=== PATIENT | male | born 1960 | race Caucasian/White ===

== ENCOUNTER → 2023-07-14 | Outpatient (CLI) | payer MEDICARE, BC, SELFPAY ==
[2023-07-14 15:05] LABS: Erythrocyte Sedimentation Rate 10 mm/hr (0-20)
[2023-07-14 15:07] LABS: Vitamin B12 581 pg/mL (211-911)
[2023-07-14 15:48] LABS: ALB/GLOB Ratio 1.1 RATIO (0.9-2.4); AST(SGOT) 11 U/L (15-37); Alanine Aminotransfer ALT/SGPT 33 U/L (16-61); Albumin, Serum 3.8 g/dL (3.2-5.0); Alkaline Phosphatase 105 U/L (45-117); Amylase 75 U/L (25-115); Anion Gap 4 (5-15); BUN 17 mg/dL (7-18); BUN/Creat Ratio 13.1 RATIO (10-20); CRP < 2.90 mg/L (0.0-3.0); Calcium,Total 9.4 mg/dL (8.5-10.1); Chloride 107 mmol/L (98-107); EST Glomerular Filtration Rate 59 mL/min (>60); Est Glom Filt Rate - Afr Amer 72 mL/min (>60); Free T3 2.5 pg/mL (2.18-3.98); Globulin 3.5 g/dL (2.2-4.2); Glucose 89 mg/dL (74-106); Potassium 4.4 mmol/L (3.5-5.1); Protein, Total 7.3 g/dL (6.4-8.2); Sodium Level 138 mmol/L (136-145); T4 Free Direct 0.85 ng/dL (0.76-1.46); Thyroid Stim Hormone (TSH) 1.35 uIU/mL (0.358-3.74)
[2023-07-17 15:08] LABS: Anti-Centromere B Ab <0.2 AI (0.0-0.9); Anti-Chromatin <0.2 AI (0.0-0.9); Anti-Jo <0.2 AI (0.0-0.9); Anti-Scleroderma-70 AB <0.2 AI (0.0-0.9); Anti-dsDNA Ab 1 IU/mL (0-9); RNP Ab <0.2 AI (0.0-0.9); SJOGREN'S Anti-SS-A test 0.2 AI (0.0-0.9); SJOGREN'S Anti-SS-B test < 0.2 AI (0.0-0.9); Smith Ab <0.2 AI (0.0-0.9); Vitamin D 1,25-Dihydroxy 36.4 pg/mL (24.8-81.5)
[2023-07-18 16:07] LABS: Albumin 4.3 g/dL (2.9-4.4); Alpha-1-Globulins 0.2 g/dL (0.0-0.4); Alpha-2-Globulins 0.6 g/dL (0.4-1.0); Cytoplasmic Ab (C-ANCA) <1:20 titer (Neg:<1:20); Endomysial Antibody IgA Negative (Negative); Immunoglobulin A 125 mg/dL (61-437); Immunoglobulin E 5 IU/mL (6-495); Immunoglobulin G 1095 mg/dL (603-1613); Immunoglobulin M 164 mg/dL (20-172); PROEL- TOTAL PROTEIN 6.9 g/dL (6.0-8.5); Perinuclear Ab (P-ANCA) <1:20 titer (Neg:<1:20); t-Transglutaminase IgA <2 U/mL (0-3)
== END | disposition home or self-care (01) ==
PROVIDERS: PCP Family Medicine; Referring Provider Internal Medicine Gastroenterology; Visit Provider Internal Medicine Gastroenterology
DX: R19.7 Diarrhea, unspecified (principal)
CPT/HCPCS: 36415; 80053; 82150; 82607; 82652; 82746; 82784; 82785; 83516; 84165; 84439; 84443; 84481; 85652; 86140; 86225; 86235; 86255; 86256; 86334

== ENCOUNTER → 2023-09-02 | Outpatient (CLI) | payer MEDICARE, BC, SELFPAY ==
[2023-09-08 10:09] LABS: Calprotectin, Stool 57 ug/g (0-120); Fats, Neutral Normal (.); Fats, Total Increased (.)
== END | disposition home or self-care (01) ==
LOC: LAB 13:40
PROVIDERS: PCP Family Medicine; Referring Provider Internal Medicine Gastroenterology; Visit Provider Internal Medicine Gastroenterology
DX: R19.7 Diarrhea, unspecified (principal); K58.9 Irritable bowel syndrome, unspecified
CPT/HCPCS: 82653; 82705; 83630; 83993; 86480; 87177; 87209; 87329; 87506

== ENCOUNTER → 2025-02-20 | Outpatient (CLI) | payer BC, MEDICARE, SELFPAY ==
--- NOTE | 2025-02-20 07:03 | ECHOCS_ITS ---
Reason For Study Reason For Study: CP, SOB, Palpitations Procedure This was a 2D Doppler, Color Flow transthoracic echocardiogram. Contrast injection was performed. Exam performed in department. Left Ventricle Normal LV size. Left ventricular systolic function is lower limits of normal. The left ventricular ejection fraction is 50 %. No regional wall motion abnormalities noted. Right Ventricle Normal RV size. Normal systolic function. Atria Normal left atrium. Normal right atrium. Mitral Valve Normal mitral valve. Tricuspid Valve Normal tricuspid valve. Mild (1+) tricuspid valve insufficiency. Pulmonary artery systolic pressure is 32 mmHg. Aortic Valve The aortic valve is not well visualized. Great Vessels Normal aortic root. The pulmonary artery is normal size. Inferior vena cava collapse with respiration. Pericardium/Pleural No pericardial effusion. Medication Diluted definity 1.5ml given slow IV push to enhance endocardial definition. MMode/2D Measurements & Calculations LVIDd: 5.0 cm IVSd: 0.97 cm Ao root diam: 3.2 cm LVIDs: 3.8 cm LVPWd: 0.89 cm RVDd: 4.1 cm FS: 24.1 % LAV(MOD-bp): 28.2 ml LVAd ap4: 36.7 cm2 LVAd ap2: 36.1 cm2 LAV(MOD-bp) Indexed: 11.7 ml/m2 LVLd ap4: 8.7 cm LVLd ap2: 8.0 cm LAV(MOD-sp2): 24.8 ml EDV(MOD-sp4): 126.9 ml EDV(MOD-sp2): 133.1 ml LAV(MOD-sp4): 30.5 ml EDV(sp4-el): 131.6 ml EDV(sp2-el): 137.7 ml LVAs ap4: 23.9 cm2 LVAs ap2: 23.5 cm2 LVLs ap4: 7.2 cm LVLs ap2: 7.1 cm ESV(MOD-sp4): 64.6 ml ESV(MOD-sp2): 65.9 ml ESV(sp4-el): 67.0 ml ESV(sp2-el): 65.8 ml EF(MOD-sp4): 49.1 % EF(MOD-sp2): 50.5 % EF(sp4-el): 49.1 % SV(MOD-sp4): 62.4 ml SV(MOD-sp2): 67.2 ml SV(sp4-el): 64.6 ml SI(MOD-sp4): 25.8 ml/m2 SI(MOD-sp2): 27.8 ml/m2 LA A4 area: 13.2 cm2 LA dimension(2D): 4.1 cm RA A4 area: 13.6 cm2 TAPSE: 2.6 cm Time Measurements MV dec time: 0.23 sec Doppler Measurements & Calculations MV E max dylon: 81.5 cm/sec Lat Peak E' Dylon: 11.4 cm/sec Med Peak E' Dylon: 7.6 cm/sec MV A max dylon: 73.4 cm/sec E/E' lat: 7.2 E/E' med: 10.7 MV E/A: 1.1 Ao V2 max: 92.9 cm/sec LV V1 max: 81.6 cm/sec MV dec slope: 347.4 cm/sec2 Ao max P.5 mmHg LV V1 max P.7 mmHg Ao V2 mean: 72.0 cm/sec Ao mean P.2 mmHg Ao V2 VTI: 22.8 cm PA V2 max: 124.1 cm/sec TR max dylon: 265.7 cm/sec PA V2 mean: 107.4 cm/sec TR max P.2 mmHg ECHO/Echo Complete W/ Contrast Interpretation Summary Normal LV size. Left ventricular systolic function is lower limits of normal. The left ventricular ejection fraction is 50 %. Contrast injection was performed. Ordering Physician: Mansoor Oreilly Referring Physician: Mansoor Oreilly Performed By: Erika Mckeon, REYNA, RVT
== END | disposition home or self-care (01) ==
PROVIDERS: PCP Family Medicine; Referring Provider Family Medicine; Visit Provider Family Medicine
DX: R07.9 Chest pain, unspecified (principal); R06.02 Shortness of breath; R00.2 Palpitations
CPT/HCPCS: 93306; Q9957; A4216; C8929; J2785